=== PATIENT | female | born 1970 | race Caucasian/White ===

== ENCOUNTER → 2017-12-22 | Outpatient (CLI) | payer OTHER | LOC: M.RAD 15:29 | DX: Z12.31 Encounter for screening mammogram for malignant neoplasm of breast (principal) ==

== ENCOUNTER → 2018-05-28 | Outpatient (CLI) | payer OTHER | LOC: M.RAD 09:52 | DX: M77.31 Calcaneal spur, right foot (principal); M77.32 Calcaneal spur, left foot ==

== ENCOUNTER → 2018-12-27 | Outpatient (CLI) | payer OTHER ==
[2018-12-27 08:25] LABS: HEMATOCRIT 40.6 % (37.0-47.0); MPV 6.9 fl. (7.2-11.1); NUCLEATED RBCS 0 /100WBC; RDW-CV 13.6 % (10.5-14.5)
[2018-12-27 08:27] LABS: ABSOLUTE BASOPHILS 0.1 thou/uL (0.0-0.2); ABSOLUTE EOSINOPHILS 0.2 thou/uL (0.0-0.7); ABSOLUTE LYMPHOCYTES 2.2 thou/uL (0.8-5.3); ABSOLUTE MONOCYTES 0.3 thou/uL (0.0-1.2); ABSOLUTE NEUTROPHILS 4.6 thou/uL (1.6-8.1); BASOPHILS 0.7 %; EOSINOPHILS 2.2 %; HEMOGLOBIN 13.6 gm/dL (12.0-15.0); LYMPHOCYTES 29.9 %; MCH 31.8 pg (26.0-34.0); MCHC 33.6 g/dL (28.0-37.0); MCV 94.5 fL (80.0-100.0); MONOCYTES 4.1 %; PLATELET COUNT* 407 thou/uL (150-400); POLYS 63.1 %; RBC 4.29 mil/uL (4.20-5.00); WBC 7.3 thou/uL (4.0-11.0)
[2018-12-27 08:36] LABS: ALBUMIN 3.6 g/dL (3.4-5.0); ALKALINE PHOSPHATASE 56 U/L (46-116); ANION GAP 9 mmol/L (7-16); BUN 11 mg/dL (7-18); CALCIUM 8.8 mg/dL (8.5-10.1); CHLORIDE 103 mmol/L (98-107); CO2 27 mmol/L (21-32); CREATININE 0.9 mg/dL (0.6-1.3); GLUCOSE 85 mg/dL (70-99); POTASSIUM 4.3 mmol/L (3.5-5.1); SERUM ASSESSMENT Clear; SGOT 17 U/L (15-37); SGPT 17 U/L (30-65); SODIUM 139 mmol/L (136-145); TOTAL BILIRUBIN 0.4 mg/dL (<0.1-1.0); TOTAL PROTEIN 7.9 g/dL (6.4-8.2)
[2018-12-27 13:39] LABS: CHOLESTEROL 177 mg/dL (<200); HDL CHOLESTEROL 32 mg/dL (>40); LDL CHOLESTEROL 112 mg/dL (<100); TC:HDL 5.5 Ratio (Not establshd); TRIGLYCERIDE 166 mg/dL (<150); VLDL 33 mg/dL (<40)
== END ==
LOC: M.RAD 08:03 → M.ULTRA 16:00
PROVIDERS: Family Medicine
DX: Z01.419 Encounter for gynecological examination (general) (routine) without abnormal findings (principal); Z12.31 Encounter for screening mammogram for malignant neoplasm of breast; N88.8 Other specified noninflammatory disorders of cervix uteri; N39.0 Urinary tract infection, site not specified

== ENCOUNTER → 2019-03-22 | Outpatient (CLI) | payer OTHER | LOC: M.CT 07:42 | DX: N39.0 Urinary tract infection, site not specified (principal) ==

== ENCOUNTER → 2020-07-27 | Outpatient (CLI) | payer OTHER | LOC: M.ULTRA 07:17 | PROVIDERS: ATTEND Family Medicine | DX: Z12.31 Encounter for screening mammogram for malignant neoplasm of breast (principal); M76.62 Achilles tendinitis, left leg ==

== ENCOUNTER → 2020-08-14 | Outpatient (CLI) | payer OTHER | LOC: M.RAD 15:37 | PROVIDERS: ATTEND Family Medicine | DX: M50.30 Other cervical disc degeneration, unspecified cervical region (principal); M48.02 Spinal stenosis, cervical region; R51.9 Headache, unspecified ==

== ENCOUNTER → 2020-11-16 | Outpatient (CLI) | payer OTHER ==
[2020-11-16 08:39] LABS: ABSOLUTE BASOPHILS 0.1 thou/uL (0.0-0.2); ABSOLUTE EOSINOPHILS 0.2 thou/uL (0.0-0.7); ABSOLUTE LYMPHOCYTES 2.3 thou/uL (0.8-5.3); ABSOLUTE MONOCYTES 0.3 thou/uL (0.0-1.2); ABSOLUTE NEUTROPHILS 4.8 thou/uL (1.6-8.1); BASOPHILS 0.8 %; EOSINOPHILS 3.1 %; HEMATOCRIT 40.6 % (37.0-47.0); HEMOGLOBIN 13.7 gm/dL (12.0-15.0); LYMPHOCYTES 29.4 %; MCH 31.9 pg (26.0-34.0); MCHC 33.7 g/dL (28.0-37.0); MCV 94.6 fL (80.0-100.0); MONOCYTES 3.9 %; MPV 6.3 fl. (7.2-11.1); NUCLEATED RBCS 0 /100WBC; PLATELET COUNT* 480 thou/uL (150-400); POLYS 62.8 %; RBC 4.29 mil/uL (4.20-5.00); RDW-CV 13.7 % (10.5-14.5); WBC 7.7 thou/uL (4.0-11.0)
[2020-11-16 09:12] LABS: ALBUMIN 3.7 g/dL (3.4-5.0); ALKALINE PHOSPHATASE 56 U/L (46-116); ANION GAP 13 mmol/L (7-16); BUN 18 mg/dL (7-18); CHLORIDE 101 mmol/L (98-107); CHOLESTEROL 185 mg/dL (<200); CO2 22 mmol/L (21-32); CREATININE 0.9 mg/dL (0.6-1.3); GLUCOSE 85 mg/dL (70-99); HDL CHOLESTEROL 31 mg/dL (>40); LDL CHOLESTEROL 127 mg/dL (<100); POTASSIUM 4.2 mmol/L (3.5-5.1); SGOT 17 U/L (15-37); SGPT 21 U/L (30-65); SODIUM 136 mmol/L (136-145); TOTAL BILIRUBIN 0.4 mg/dL (<0.1-1.0); TOTAL PROTEIN 7.9 g/dL (6.4-8.2); TRIGLYCERIDE 138 mg/dL (<150); VLDL 28 mg/dL (<40)
[2020-11-16 09:14] LABS: SERUM ASSESSMENT Clear
== END ==
LOC: M.LAB 08:21
PROVIDERS: ATTEND Family Medicine
DX: Z01.419 Encounter for gynecological examination (general) (routine) without abnormal findings (principal)

== ENCOUNTER → 2021-08-30 | Outpatient (CLI) | payer OTHER ==
[2021-08-30 08:00] LABS: ABSOLUTE EOSINOPHILS 0.3 thou/uL (0.0-0.7); ABSOLUTE LYMPHOCYTES 2.1 thou/uL (0.8-5.3); ABSOLUTE MONOCYTES 0.3 thou/uL (0.0-1.2); ABSOLUTE NEUTROPHILS 3.5 thou/uL (1.6-8.1); BASOPHILS 0.7 %; EOSINOPHILS 4.3 %; HEMATOCRIT 40.6 % (37.0-47.0); HEMOGLOBIN 13.6 gm/dL (12.0-15.0); LYMPHOCYTES 34.1 %; MCHC 33.5 g/dL (28.0-37.0); MCV 98.7 fL (80.0-100.0); MONOCYTES 4.6 %; MPV 6.4 fl. (7.2-11.1); NUCLEATED RBCS 0 /100WBC; PLATELET COUNT* 426 thou/uL (150-400); POLYS 56.3 %; RBC 4.11 mil/uL (4.20-5.00); RDW-CV 14.3 % (10.5-14.5); WBC 6.3 thou/uL (4.0-11.0)
[2021-08-30 08:13] LABS: ALBUMIN 3.4 g/dL (3.4-5.0); CALCIUM 8.6 mg/dL (8.5-10.1); CREATININE 0.8 mg/dL (0.6-1.3); POTASSIUM 4.4 mmol/L (3.5-5.1); TOTAL BILIRUBIN 0.3 mg/dL (<0.1-1.0)
[2021-08-31 02:06] LABS: GLYCOHEMOGLOBIN (HGB A1C) 5.4 % (4.8-5.6)
== END ==
LOC: M.LAB 07:41
PROVIDERS: ATTEND Family Medicine
DX: R63.5 Abnormal weight gain (principal); R53.82 Chronic fatigue, unspecified

== ENCOUNTER → 2021-11-01 | Outpatient (CLI) | payer OTHER ==
[2021-11-02 21:06] LABS: ANA INTERPRETATION Negative (())
== END ==
LOC: M.LAB 07:57
PROVIDERS: ATTEND Family Medicine
DX: M25.50 Pain in unspecified joint (principal)

== ENCOUNTER → 2021-11-30 | Outpatient (CLI) | payer OTHER | LOC: M.RAD 07:34 | PROVIDERS: ATTEND Family Medicine | DX: Z12.31 Encounter for screening mammogram for malignant neoplasm of breast (principal); R53.82 Chronic fatigue, unspecified; R63.5 Abnormal weight gain ==